=== PATIENT | female | born 1945 | race Two or more races ===

== ENCOUNTER 2023-12-16 21:58 | Inpatient (IN) | payer OTHER ==
[~2023-12-16] VITALS: Ht 152.4 cm; Wt 77.1 kg
[2023-12-16] MEDS ORDERED: VASOTEC5 MG PO (22:22)
[2023-12-16] MEDS ORDERED: VIT D3-VIT K21 EACH PO (22:22)
[2023-12-16] MEDS ORDERED: 3-DAY VAGINAL C21 GM VG (22:23)
[2023-12-16] MEDS ORDERED: HUMALOG100 UNIT/1 SUBCUTANEO (22:23)
[2023-12-16] MEDS ORDERED: PEPCID AC10 MG PO (22:23)
[2023-12-16] MEDS ORDERED: SIMVASTATIN10 MG PO (22:24)
[2023-12-16] MEDS ORDERED: EVOCLIN100 GM TOP (22:24)
[2023-12-16] MEDS ORDERED: SYNTHROID100 MCG PO (22:25)
[2023-12-16] MEDS ORDERED: CLONAZEPAM2 MG PO (22:25)
[2023-12-16] MEDS ORDERED: LANTUS SOL100 UNIT/1 (22:26)
[2023-12-16] MEDS ORDERED: SENNA LAXATIVE8.6 MG PO (22:26)
[2023-12-16] MEDS ORDERED: 0.9 % SODIUM CHLORIDE 1,000 ML IV SCH (22:45)
[2023-12-16] MEDS ORDERED: INSULIN REGULAR, HUMAN 1,000 UNIT/10 ML UNITS IV ONE (23:00)
[2023-12-16 23:48] LABS: HEMATOCRIT 43.1 % (36.0-45.00); HEMOGLOBIN 14.4 g/dL (12.0-15.00); MEAN CORPUSCULAR HEMOGLOBIN 30.1 pg (27.00-32.0); MEAN CORPUSCULAR HGB CONC 33.5 g/dl (32.0-36.0); PLATELET COUNT 242 K/uL (150-450); RED BLOOD COUNT 4.78 M/uL (4.00-6.00)
[2023-12-16 23:57] LABS: CALCIUM 9.6 mg/dL (8.5-10.1); CREATININE SERUM 0.74 mg/dL (0.55-1.02); GFR 75.51; POTASSIUM 5.22 mEq/L (3.5-5.1)
[2023-12-17] MEDS ORDERED: INSULIN REGULAR, HUMAN 1,000 UNIT/10 ML UNITS IV STA ×3 (00:32→06:38)
[2023-12-17] MEDS ORDERED: CEFTRIAXONE SODIUM 1,000 MG VIAL IV STA (02:35)
[2023-12-17] MEDS ORDERED: CEFTRIAXONE SODIUM 1,000 MG VIAL ONE (02:46)
[2023-12-17 03:27] LABS: PH,URINE 7.5 (5.0-8.0); URINE APPEARANCE Clear; URINE BILIRRUBIN Negative (NEGATIVE); URINE BLOOD Negative; URINE COLOR Yellow; URINE KETONE Negative (NEGATIVE); URINE LEUKOCYTE Negative; URINE NITRATE Negative; URINE PROTEIN 30 (NEGATIVE)
[2023-12-17 03:30] LABS: URINE RBC 2.2 uL (0.0-20.8)
[2023-12-17 03:47] LABS: URINE BACTERIA 2.5 uL (0.0-1933); URINE CAST 0.15 uL (0.0-1.40); URINE EPITHELIAL CELLS 0.9 uL (0.0-38.8); URINE GLUCOSE 500 MG/DL (NEGATIVE); URINE WBC 1.3 uL (0.0-23.2)
[2023-12-17] MEDS ORDERED: CLINDAMYCIN HC150 MG (08:11)
[2023-12-17] MEDS ORDERED: SODIUM CHLORIDE 0.45 % 1,000 ML IV SCH (10:00)
[2023-12-17] MEDS ORDERED: FAMOTIDINE/PF 20 MG/10 ML SYRINGE IV PUSH SCH (10:08)
[2023-12-17] MEDS ORDERED: CEFTRIAXONE SODIUM 2,000 MG in DEXTROSE 5 % IN WATER 100 ML IV SCH (10:09)
[2023-12-17] MEDS ORDERED: ENALAPRIL MALEATE 20 MG TABLET PO SCH (10:13)
[2023-12-17] MEDS ORDERED: DEXTROSE 50 % IN WATER 0.5 G/ML DISP.SYRIN IV PRN (10:15)
[2023-12-17] MEDS ORDERED: INSULIN LISPRO 1,000 UNIT/10 ML UNITS SUBCUTANEO PRN (10:15)
[2023-12-17] MEDS ORDERED: CLONAZEPAM 0.5 MG TABLET PO SCH (10:19)
[2023-12-17] MEDS ORDERED: ENOXAPARIN SODIUM 40 MG/0.4 ML SYRINGE SUBCUTANEO SCH (10:20)
[2023-12-17] MEDS ORDERED: ACETAMINOPHEN 500 MG GEL..CAP PO PRN (10:30)
[2023-12-17] MEDS ORDERED: CEFTRIAXONE SODIUM 2,000 MG VIAL ONE (10:43)
[2023-12-17] MEDS ORDERED: ENOXAPARIN SODIUM 40 MG/0.4 ML SYRINGE SUBCUTANEO ONE (10:44)
[2023-12-17] MEDS ORDERED: FAMOtidine 200mg/20ml VIAL ONE (10:44)
[2023-12-17] MEDS ORDERED: FLUCONAZOLE IN NACL,ISO-OSM 400 MG/200 ML PIGGYBAG IV SCH (17:00)
[2023-12-17] MEDS ORDERED: FAMOTIDINE/PF 20 MG/2 ML VIAL IV SCH (21:00)
[2023-12-17] MEDS ORDERED: INSULIN GLARGINE,HUM.REC.ANLOG 1,000 UNITS/10 ML UNITS SUBCUTANEO SCH (21:45)
[2023-12-18] MEDS ORDERED: hydrALAZINE HCL 20 MG VIAL IV PRN (02:00)
[2023-12-18 05:19] LABS: HEMATOCRIT 41.5 % (36.0-45.00); MEAN CELL VOLUME 90.9 fL (80.00-100.00); MEAN CORPUSCULAR HEMOGLOBIN 30.7 pg (27.00-32.0); MEAN CORPUSCULAR HGB CONC 33.7 g/dl (32.0-36.0); PLATELET COUNT 245 K/uL (150-450); RED BLOOD COUNT 4.57 M/uL (4.00-6.00); RED CELL DISTRIBUTION WIDTH 14.8 % (11.5-14.5)
[2023-12-18 05:41] LABS: ERYTHROCYTE SEDIMENTATION RATE 97 mm/hr
[2023-12-18 05:52] LABS: ALBUMIN 2.5 gm/dL (3.4-5.0); BILIRUBIN TOTAL 0.43 mg/dL (0.3-1.2); C-REACTIVE PROTEIN 1.8 MG/DL (0.00-0.29); CALCIUM 9.2 mg/dL (8.5-10.1); CREATININE SERUM 0.68 mg/dL (0.55-1.02); GFR 83.25; GLOBULINA 4.7 G/DL (2.4-3.5); MAGNESIUM 2.2 mg/dL (1.8-2.4); PHOSPHOROUS 2.1 mg/dL (2.5-4.9); POTASSIUM 4.54 mEq/L (3.5-5.1); TOTAL PROTEIN 7.2 gm/dL (6.4-8.2); TSH 1.79 uIU/mL (0.358-3.74)
[2023-12-18] MEDS ORDERED: LEVOTHYROXINE SODIUM 100 MCG TABLET PO SCH (06:00)
[2023-12-18] MEDS ORDERED: INSULIN GLARGINE,HUM.REC.ANLOG 1,000 UNITS/10 ML UNITS SUBCUTANEO SCH ×2 (09:00→21:00)
[2023-12-18] MEDS ORDERED: FLUCONAZOLE IN NACL,ISO-OSM 100 ML IV SCH (17:00)
[2023-12-18] MEDS ORDERED: NIFEDIPINE 30 MG TAB.SA.OSM PO SCH (20:18)
[2023-12-19] MEDS ORDERED: INSULIN NPH HUMAN ISOPHANE 1,000 UNITS/10 ML UNITS SUBCUTANEO SCH ×2 (09:00→17:00)
[2023-12-19 15:47] LABS: HEMATOCRIT 39.6 % (36.0-45.00); HEMOGLOBIN 13.2 g/dL (12.0-15.00); MEAN CELL VOLUME 89.4 fL (80.00-100.00); MEAN CORPUSCULAR HEMOGLOBIN 29.8 pg (27.00-32.0); MEAN CORPUSCULAR HGB CONC 33.4 g/dl (32.0-36.0); PLATELET COUNT 251 K/uL (150-450); RED BLOOD COUNT 4.43 M/uL (4.00-6.00); RED CELL DISTRIBUTION WIDTH 15.1 % (11.5-14.5)
[2023-12-19 16:04] LABS: ALBUMIN 2.4 gm/dL (3.4-5.0); BILIRUBIN TOTAL 0.81 mg/dL (0.3-1.2); CALCIUM 9.2 mg/dL (8.5-10.1); CREATININE SERUM 0.66 mg/dL (0.55-1.02); GFR 86.17; GLOBULINA 4.5 G/DL (2.4-3.5); POTASSIUM 4.27 mEq/L (3.5-5.1); TOTAL PROTEIN 6.9 gm/dL (6.4-8.2)
[2023-12-20] MEDS ORDERED: INSULIN NPH HUMAN ISOPHANE 1,000 UNITS/10 ML UNITS SUBCUTANEO SCH ×2 (01:00→09:00)
[2023-12-21 03:01] LABS: ABG PH 7.336 (7.35-7.45); ABG PO2 76.7 mmHg (80-100); ABG pCO2 46.3 mmHg (35-45); BASE EXCESS -1.9 mmol/l; BICARBONATE 24.2 mmol/l (23-25); Tco2 25.6 mmol/l; o2 100 %
[2023-12-21 03:02] LABS: allen test SATISFACTORY; puncture site RADIAL RIGHT
[2023-12-21 15:18] LABS: HEMATOCRIT 37.3 % (36.0-45.00); HEMOGLOBIN 12.4 g/dL (12.0-15.00); MEAN CELL VOLUME 89.5 fL (80.00-100.00); MEAN CORPUSCULAR HEMOGLOBIN 29.7 pg (27.00-32.0); MEAN CORPUSCULAR HGB CONC 33.2 g/dl (32.0-36.0); PLATELET COUNT 220 K/uL (150-450); RED BLOOD COUNT 4.17 M/uL (4.00-6.00); RED CELL DISTRIBUTION WIDTH 15.5 % (11.5-14.5)
[2023-12-21 15:49] LABS: ALBUMIN 2.3 gm/dL (3.4-5.0); BILIRUBIN TOTAL 1.36 mg/dL (0.3-1.2); CALCIUM 9.8 mg/dL (8.5-10.1); CREATININE SERUM 0.75 mg/dL (0.55-1.02); GFR 74.35; GLOBULINA 4.2 G/DL (2.4-3.5); POTASSIUM 5.85 mEq/L (3.5-5.1); TOTAL PROTEIN 6.5 gm/dL (6.4-8.2)
[2023-12-21] MEDS ORDERED: DIPHENHYDRAMINE HCL 50 MG/ML VIAL 1ML IV SCH (17:00)
[2023-12-21] MEDS ORDERED: INSULIN NPH HUMAN ISOPHANE 1,000 UNITS/10 ML UNITS SUBCUTANEO ONE (23:54)
[2023-12-22] MEDS ORDERED: INSULIN NPH HUMAN ISOPHANE 1,000 UNITS/10 ML UNITS SUBCUTANEO SCH ×2 (01:00→17:00)
[2023-12-22] MEDS ORDERED: BUDESONIDE 0.5 MG/2 ML AMPUL.NEB IH STA (08:30)
[2023-12-22] MEDS ORDERED: LEVALBUTEROL HCL 1.25 MG/3 ML SOLUTION IH STA (08:33)
[2023-12-22] MEDS ORDERED: PANTOPRAZOLE SODIUM 40 MG/VIAL VIAL IV PUSH SCH (10:34)
[2023-12-22] MEDS ORDERED: LOSARTAN POTASSIUM 50 MG TABLET PO SCH (10:34)
[2023-12-22] MEDS ORDERED: LEVALBUTEROL HCL 1.25 MG/3 ML SOLUTION IH SCH (12:00)
[2023-12-22] MEDS ORDERED: METHYLPREDNISOLONE SOD SUCC 40 MG VIAL IV NR (13:15)
[2023-12-22] MEDS ORDERED: FUROsemide 20 MG/2 ML VIAL IV SCH (14:03)
[2023-12-22] MEDS ORDERED: MEROPENEM 500 MG/VIAL VIAL IV SCH (14:06)
[2023-12-22] MEDS ORDERED: SODIUM CHLORIDE 0.45 % 1,000 ML IV SCH (14:15)
[2023-12-22] MEDS ORDERED: BUDESONIDE 0.5 MG/2 ML AMPUL.NEB IH SCH (21:00)
[2023-12-22 21:20] LABS: ABG PO2 157.5 mmHg (80-100); BASE EXCESS 0.9 mmol/l; BICARBONATE 25.4 mmol/l (23-25); SaO2 99.4 %; Tco2 26.6 mmol/l; o2 100 %
[2023-12-22 21:21] LABS: allen test SATISFACTORY; puncture site RADIAL RIGHT
[2023-12-23 07:42] LABS: HEMATOCRIT 36.1 % (36.0-45.00); HEMOGLOBIN 12.1 g/dL (12.0-15.00); MEAN CELL VOLUME 90.1 fL (80.00-100.00); MEAN CORPUSCULAR HEMOGLOBIN 30.2 pg (27.00-32.0); MEAN CORPUSCULAR HGB CONC 33.5 g/dl (32.0-36.0); RED CELL DISTRIBUTION WIDTH 15.3 % (11.5-14.5)
[2023-12-23 08:05] LABS: ALBUMIN 2.2 gm/dL (3.4-5.0); BILIRUBIN TOTAL 1.18 mg/dL (0.3-1.2); CALCIUM 9.2 mg/dL (8.5-10.1); CREATININE SERUM 0.71 mg/dL (0.55-1.02); GFR 79.2; GLOBULINA 4.3 G/DL (2.4-3.5); MAGNESIUM 2.4 mg/dL (1.8-2.4); PHOSPHOROUS 2.8 mg/dL (2.5-4.9); POTASSIUM 5.54 mEq/L (3.5-5.1); TOTAL PROTEIN 6.5 gm/dL (6.4-8.2)
[2023-12-23 08:11] LABS: C-REACTIVE PROTEIN 8.24 MG/DL (0.00-0.29)
[2023-12-23 08:13] LABS: PLATELET COUNT 225 K/uL (150-450)
[2023-12-23] MEDS ORDERED: INSULIN NPH HUMAN ISOPHANE 1,000 UNITS/10 ML UNITS SUBCUTANEO SCH ×2 (09:00→17:00)
[2023-12-23] MEDS ORDERED: SODIUM POLYSTYRENE SULFONATE 30G/8 TSP NGT SCH (13:00)
[2023-12-23] MEDS ORDERED: VANCOMYCIN HCL 1,000 MG in 0.9 % SODIUM CHLORIDE 250 ML IV SCH (17:00)
[2023-12-24] MEDS ORDERED: INSULIN NPH HUMAN ISOPHANE 1,000 UNITS/10 ML UNITS SUBCUTANEO SCH (01:00)
[2023-12-24 07:45] LABS: ob NEGATIVE (NEGATIVE)
[2023-12-24] MEDS ORDERED: NIFEDIPINE 30 MG TAB.SA.OSM PO SCH (09:00)
[2023-12-24 11:48] LABS: PH,URINE 7.5 (5.0-8.0); URINE APPEARANCE Clear; URINE BILIRRUBIN Negative (NEGATIVE); URINE COLOR Yellow; URINE KETONE Negative (NEGATIVE); URINE LEUKOCYTE Trace; URINE NITRATE Negative; URINE PROTEIN 30 (NEGATIVE)
[2023-12-24 11:49] LABS: URINE EPITHELIAL CELLS 24.1 uL (0.0-38.8); URINE GLUCOSE >=1000 MG/DL (NEGATIVE)
[2023-12-24 11:50] LABS: URINE BLOOD TRACE
[2023-12-24 12:46] LABS: ABG PH 7.424 (7.35-7.45); ABG PO2 95.3 mmHg (80-100); ABG pCO2 47.6 mmHg (35-45); BICARBONATE 30.5 mmol/l (23-25); SaO2 97.7 %; Tco2 31.9 mmol/l; allen test SATISFACTORY; o2 100 %; puncture site RADIAL RIGHT
[2023-12-24 14:47] LABS: HEMATOCRIT 35.2 % (36.0-45.00); HEMOGLOBIN 11.6 g/dL (12.0-15.00); MEAN CELL VOLUME 91.7 fL (80.00-100.00); MEAN CORPUSCULAR HEMOGLOBIN 30.1 pg (27.00-32.0); MEAN CORPUSCULAR HGB CONC 32.8 g/dl (32.0-36.0); PLATELET COUNT 196 K/uL (150-450); RED BLOOD COUNT 3.84 M/uL (4.00-6.00); RED CELL DISTRIBUTION WIDTH 15.2 % (11.5-14.5)
[2023-12-24 15:55] LABS: ALBUMIN 2.1 gm/dL (3.4-5.0); BILIRUBIN TOTAL 1.97 mg/dL (0.3-1.2); CALCIUM 8.8 mg/dL (8.5-10.1); CREATININE SERUM 0.6 mg/dL (0.55-1.02); GFR 96.19; POTASSIUM 4.01 mEq/L (3.5-5.1); TOTAL PROTEIN 6.1 gm/dL (6.4-8.2)
[2023-12-26 05:37] LABS: ALBUMIN 1.9 gm/dL (3.4-5.0); BILIRUBIN TOTAL 1.42 mg/dL (0.3-1.2); CALCIUM 8.5 mg/dL (8.5-10.1); CREATININE SERUM 0.49 mg/dL (0.55-1.02); GFR 121.51; POTASSIUM 4.64 mEq/L (3.5-5.1); TOTAL PROTEIN 5.9 gm/dL (6.4-8.2)
[2023-12-26 09:28] LABS: ABG PH 7.468 (7.35-7.45); ABG PO2 87.8 mmHg (80-100); BASE EXCESS 6.6 mmol/l; BICARBONATE 31.1 mmol/l (23-25); SaO2 97.5 %; Tco2 32.5 mmol/l; allen test SATISFACTORY; puncture site RADIAL RIGHT
[2023-12-26 09:29] LABS: o2 100 %
[2023-12-29 06:34] LABS: HEMATOCRIT 29.6 % (36.0-45.00); HEMOGLOBIN 9.8 g/dL (12.0-15.00); MEAN CELL VOLUME 91.4 fL (80.00-100.00); MEAN CORPUSCULAR HEMOGLOBIN 30.2 pg (27.00-32.0); MEAN CORPUSCULAR HGB CONC 33.1 g/dl (32.0-36.0); PLATELET COUNT 162 K/uL (150-450); RED BLOOD COUNT 3.24 M/uL (4.00-6.00); RED CELL DISTRIBUTION WIDTH 15.3 % (11.5-14.5)
[2023-12-29 07:09] LABS: ALBUMIN 1.9 gm/dL (3.4-5.0); BILIRUBIN TOTAL 1.92 mg/dL (0.3-1.2); CALCIUM 8.9 mg/dL (8.5-10.1); CREATININE SERUM 0.7 mg/dL (0.55-1.02); GFR 80.51; GLOBULINA 4.2 G/DL (2.4-3.5); MAGNESIUM 2.4 mg/dL (1.8-2.4); POTASSIUM 4.61 mEq/L (3.5-5.1); TOTAL PROTEIN 6.1 gm/dL (6.4-8.2)
[2023-12-29 08:08] LABS: C-REACTIVE PROTEIN 12.3 MG/DL (0.00-0.29); PHOSPHOROUS 1.6 mg/dL (2.5-4.9)
[2023-12-29] MEDS ORDERED: POTASSIUM PHOS,M-BASIC-D-BASIC 18 MM in 0.9 % SODIUM CHLORIDE 500 ML IV SCH (09:00)
[2023-12-29] MEDS ORDERED: MEROPENEM 500 MG/VIAL VIAL IV SCH (18:00)
[2023-12-29] MEDS ORDERED: IPRATROPIUM BROMIDE 0.5 MG/2.5 ML AMPUL.NEB IH SCH (22:31)
[2023-12-29] MEDS ORDERED: ALBUMIN HUMAN-25 0.25GM/ML (50ML) VIAL IV SCH (22:34)
[2023-12-29] MEDS ORDERED: POTASSIUM PHOS,M-BASIC-D-BASIC 18 MM in 0.9 % SODIUM CHLORIDE 250 ML IV SCH (22:34)
[2023-12-29] MEDS ORDERED: FUROsemide 20 MG/2 ML VIAL IV PRN (22:45)
[2023-12-30] MEDS ORDERED: METHYLPREDNISOLONE SOD SUCC 40 MG VIAL IV SCH
[2023-12-30] MEDS ORDERED: INSULIN NPH HUMAN ISOPHANE 1,000 UNITS/10 ML UNITS SUBCUTANEO SCH ×2 (01:00→18:44)
[2023-12-30] MEDS ORDERED: FUROsemide 20 MG/2 ML VIAL IV SCH (09:00)
[2023-12-30] MEDS ORDERED: POTASSIUM PHOS,M-BASIC-D-BASIC 18 MM in 0.9 % SODIUM CHLORIDE 500 ML IV SCH (09:00)
[2023-12-30] MEDS ORDERED: VANCOMYCIN HCL 1,000 MG in 0.9 % SODIUM CHLORIDE 250 ML IV SCH (09:00)
[2023-12-31] MEDS ORDERED: INSULIN NPH HUMAN ISOPHANE 1,000 UNITS/10 ML UNITS SUBCUTANEO SCH ×2 (01:00→09:00)
[2023-12-31 09:27] LABS: HEMOGLOBIN 10.3 g/dL (12.0-15.00); MEAN CELL VOLUME 91.3 fL (80.00-100.00); MEAN CORPUSCULAR HEMOGLOBIN 30.5 pg (27.00-32.0); MEAN CORPUSCULAR HGB CONC 33.4 g/dl (32.0-36.0); PLATELET COUNT 194 K/uL (150-450); RED BLOOD COUNT 3.39 M/uL (4.00-6.00); RED CELL DISTRIBUTION WIDTH 15.7 % (11.5-14.5)
[2023-12-31 15:53] LABS: CALCIUM 8.8 mg/dL (8.5-10.1); CREATININE SERUM 0.72 mg/dL (0.55-1.02); GFR 77.94; MAGNESIUM 2.5 mg/dL (1.8-2.4); PHOSPHOROUS 5.7 mg/dL (2.5-4.9)
[2023-12-31 16:14] LABS: POTASSIUM 6.1 mEq/L (3.5-5.1)
[2023-12-31] MEDS ORDERED: DEXTROSE 5 % IN WATER 1,000 ML IV SCH (20:00)
[2024-01-01] MEDS ORDERED: INSULIN NPH HUMAN ISOPHANE 1,000 UNITS/10 ML UNITS SUBCUTANEO SCH ×3 (01:00→17:00)
== END 2023-12-31 22:54 | disposition expired | DRG 689 ==
LOC: ER 21:58 → MEDI 12-17 12:11
PROVIDERS: Emergency Medicine; Internal Medicine; Internal Medicine Endocrinology, Diabetes & Metabolism; Internal Medicine Infectious Disease; ADMIT Internal Medicine; ATTEND Internal Medicine
PROC: BW24ZZZ Computerized Tomography (CT Scan) of Chest and Abdomen (ICD-10-PCS; principal; 2023-12-22)
PROC: BW40ZZZ Ultrasonography of Abdomen (ICD-10-PCS; 2023-12-30)
DX: N39.0 Urinary tract infection, site not specified (principal); G93.41 Metabolic encephalopathy; J18.9 Pneumonia, unspecified organism; N17.9 Acute kidney failure, unspecified; E87.5 Hyperkalemia; E11.65 Type 2 diabetes mellitus with hyperglycemia; Z79.4 Long term (current) use of insulin; Z74.01 Bed confinement status; I10 Essential (primary) hypertension; E78.5 Hyperlipidemia, unspecified; G30.9 Alzheimer's disease, unspecified; F02.80 Dementia in other diseases classified elsewhere, unspecified severity, without behavioral disturbance, psychotic disturbance, mood disturbance, and anxiety; E03.9 Hypothyroidism, unspecified